=== PATIENT | female | born 1965 | race Two or more races ===

== ENCOUNTER 2022-03-29 18:19 | Inpatient (IN) | payer OTHER ==
[~2022-03-29] VITALS: Ht 152.4 cm; Wt 65.8 kg
[2022-03-29] MEDS ORDERED: METFORMIN 1000 (18:35)
[2022-03-29] MEDS ORDERED: GLIPIZIDE XL10 MG (18:35)
[2022-03-29] MEDS ORDERED: ENALAPRIL MALEA10 MG (18:36)
--- NOTE | 2022-03-29 18:39 | NUR ---
PTE SE RECIBE POR DOLOR DE ESTOMAGO REFIERE PARAMEDICO Y PTE.
[2022-03-30] MEDS ORDERED: ABATINEX680 MG (13:25)
[2022-03-30] MEDS ORDERED: METFORMIN HCL1000 MG (13:26)
== END 2022-04-03 22:57 | disposition home or self-care (01) | DRG 444 ==
LOC: ER 18:19 → SEC-K 20:59 → MEDI 03-30 13:31
PROVIDERS: ADMIT Internal Medicine; ATTEND Internal Medicine
PROC: BF37ZZZ Magnetic Resonance Imaging (MRI) of Pancreas (ICD-10-PCS; 2022-03-29)
PROC: BW21ZZZ Computerized Tomography (CT Scan) of Abdomen and Pelvis (ICD-10-PCS; principal; 2022-03-30)
DX: K80.20 Calculus of gallbladder without cholecystitis without obstruction (principal); K85.10 Biliary acute pancreatitis without necrosis or infection; K80.42 Calculus of bile duct with acute cholecystitis without obstruction; N17.9 Acute kidney failure, unspecified; E87.6 Hypokalemia; I12.9 Hypertensive chronic kidney disease with stage 1 through stage 4 chronic kidney disease, or unspecified chronic kidney disease; E11.22 Type 2 diabetes mellitus with diabetic chronic kidney disease; N18.9 Chronic kidney disease, unspecified; F32.A Depression, unspecified; E11.21 Type 2 diabetes mellitus with diabetic nephropathy; Z79.4 Long term (current) use of insulin